=== PATIENT | male | born 1975 | race Caucasian/White ===

== ENCOUNTER 2019-04-28 19:07 | Emergency (ER) | payer BC ==
--- OUTSIDE RECORDS SUMMARY | 2019-04-28 19:45 | XMS REPORT | Continuity of Care Document ---
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 Onset: 11/26/2015 Anxiety state Shanda Shaw M.D. Onset: 11/26/2015 Psychogenic impotence Omar Pedro MD Onset: 02/06/2018 Sterilization education Carlos Harper M.D. Onset: 03/20/2018 Social History Type Date Description Comments Sex Unknown ETOH Use Drinks 2 Alcoholic "a couple times a week" Beverages Per Day Tobacco Use Start: Unknown End: Patient is a former 1 PPD x13 years Quit Unknown smoker 2008 and 2013 Tobacco Use Start: Unknown Patient is a current marijuana smoker, smokes every day Smoking Status Reviewed: 04/23/19 Patient is a current marijuana smoker, smokes every day Allergies, Adverse Reactions, Alerts Active Allergies Reaction Severity Comments Date Penicillin 12/29/2010 Medications Active Medications SIG Qnty Indications Ordering Provider Date Hydroxyzine HCL 1 tab by mouth 90tabs F41.9 Omar Pedro MD 06/12/2018 25mg every night at Tablets bedtime Lisinopril 1 by mouth every 90tabs I10 Omar Pedro MD 12/29/2015 5mg Tablets day Immunizations CPT Code Status Date Vaccine Lot # [id number] Given 12/18/2018 Influenza Virus Vaccine, Quadrivalent, 36 Mos+, [id number] .5ML 83002 Given 01/22/2018 Influenza Virus Vaccine, Quadrivalent, 36 Mos+, [id number] .5ML 17046 Given 11/30/2016 Influenza Virus Vaccine Quadrivalent Iiv4 [place] [id number] [address] Given 11/26/2015 Influenza Virus Vaccine Split Virus Use For Individual 3Yr Older [id number] Given 11/14/2014 Influenza Vaccine (Fluzone) Age 3 And Older 19442 Given 11/14/2013 flu vaccination 23829 Given 10/26/2012 flu vaccination 07655 Given 08/17/2012 Tdap injection 62021 Given 02/09/2012 flu vaccination 61784 Given 12/03/2009 flu vaccination 62306 Given 11/05/2008 flu vaccination Vital Signs Date Vital Result Comment 04/23/2019 10:10am BP Systolic 98 mmHg BP Diastolic 68 mmHg Body Temperature 98.5 F Heart Rate 75 /min Respiratory Rate 20 /min Weight 222.38 lb O2 % BldC Oximetry 100 % 02/27/2019 9:43am BP Systolic 128 mmHg BP Diastolic 80 mmHg Body Temperature 98.9 F Heart Rate 61 /min Respiratory Rate 16 /min Height 70 inches 5'10" Weight 223.00 lb BMI (Body Mass Index) 32.0 kg/m2 BSA (Body Surface Area) 2.19 m2 Holiday body weight in kilograms 75 kg O2 % BldC Oximetry 98 % Results Test Acquired Date Facility Test Result H/L Range Note Laboratory test 04/23/2019 [facility] Influenza A/B neg finding Rapid LDL Cholesterol 02/27/[address] Cholesterol 207 mg/dL High < 200 1, 2 Profile [address] [place], [place] [id number] [phone] Triglycerides 66 mg/dL <150 3 HDL Cholesterol 70 mg/dL >40 4 LDL-Cholesterol 124 mg/dL < 100 5 Basic Metabolic Panel 02/27/[address] Glucose 92 mg/dL Normal 74-106 [address] [place], [place] [id number] [phone] BUN 19 mg/dL High 7-18 Creatinine 1.2 mg/dL Normal 0.6-1.3 Glom Filtration Rate, Estimate >60 mL/min >60 If >60 mL/min >60 6 BUN/Creat 15.8 ratio Sodium 136 mmol/L Normal 136-145 Potassium 4.8 mmol/L Normal 3.5-5.1 Chloride 107 mmol/L Normal 98-107 Carbon Dioxide 26 mmol/L Normal 21-32 Anion Gap 3 mEq/L Low 8-16 Calcium 9.2 mg/dL Normal 8.5-10.1 Semen Post Vasectomy 11/22/2018 [facility] Volume 2.0 mL Not Estab. [address] [address] [phone] Post-Vas Sperm, Qual (SEE NOTE) 8 1 Z79.899 2 Reference Guidelines*: Desirable: ........... < 200 mg/dL Borderline High: ..... 200-239 mg/dL High: ................ >= 240 mg/dL * The National Cholesterol Education Program (NCEP) 3 Reference Guidelines*: Normal: ............. < 150 mg/dL Borderline High: .... 150-199 mg/dL High: ............... 200-499 mg/dL Very High: .......... > 500 mg/dL * Source: National Cholesterol Education Program (NCEP) 4 Reference Guidelines*: Low HDL: ..... < 40 mg/dL Normal: ..... 40-60 mg/dL Desirable: ... > 60 mg/dL *The National Cholesterol Education Program(NCEP) 5 Reference Guidelines*: Optimal:........... <100 mg/dL Near Optimal....... 100-129 mg/dL Borderline High.... 130-159 mg/dL High............... 160-189 mg/dL Very High.......... >=190 mg/dL * Source: National Cholesterol Education Program (NCEP) 6 Note: Persistent reduction for 3 months or more in an eGFR <60 mL/min/1.73 m2 defines CKD. Patients with eGFR values >/=60 mL/min/1.73 m2 may also have CKD if evidence of persistent proteinuria is present. The original MDRD equation for estimated GFR is not valid for patients less than 18 years of age. Additional information may be found at www.kdoqi.org. 7 Z98.52 8 No sperm were seen in three aliquots of the uncentrifuged specimen, if sperm are present they are below the limit of detection. 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, unspecified I10 Essential (primary) hypertension Office Visit 02/27/2019 9:50a [facility] Medicine Omar Pedro, W19.xxxA Unspecified Bj mejía RD, MD initial encounter R60.0 Localized edema Office Visit 12/18/2018 8:10a [facility] Medicine Omar Pedro, I10 Essential (primary) Bj DAVIS MD hypertension F41.9 Anxiety disorder, unspecified Z23 Encounter for immunization Z79.899 Other snf (current) drug therapy Assessments Date Code Description Provider 04/23/2019 J06.9 Acute upper respiratory infection, [place], 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., 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 unspecified 04/23/2019 I10 Essential (primary) hypertension [place] 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 M., 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 02/27/2019 W19.xxxA Unspecified fall, initial Omar Pedro MD encounter 02/27/2019 R60.0 Localized edema Omar Pedro MD 12/18/2018 I10 Essential (primary) hypertension Omar Pedro MD 12/18/2018 F41.9 Anxiety disorder, unspecified Omar Pedro MD 12/18/2018 Z23 Encounter for immunization Omar Pedro MD 12/18/2018 Z79.899 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
[2019-04-28 19:49] VITALS: BP 108/65
--- NOTE | 2019-04-28 20:00 | UC ---
Throat Pain/Nasal Hétcor HPI - HPI Summary HPI Summary: Pt stated that for the last 3 times that he has been swimming he has developed a very bad cough and this time a fever. - History of Current Complaint Chief Complaint: UCGeneralIllness Stated Complaint: COUGH, FEVER Pain Intensity: 2 - Allergies/Home Medications Allergies/Adverse Reactions: Allergies Allergy/AdvReac Type Severity Reaction Status Date / Time Penicillins AdvReac Hives Verified 04/28/19 19:49 Home Medications: Home Medications Azithromyxin BRANNON (NF) [Z-Brannon (Zithromax) 250 mg tabs #6] 2 tab PO .TODAY, THEN 1 DAILY #6 tab 04/28/19 [Rx] Lisinopril TAB* [Prinivil TAB 5 MG*] 5 mg PO DAILY 04/28/19 [History Confirmed 04/28/19] hydrOXYzine HCL TAB* [Atarax 10 MG TAB*] 10 mg PO QID PRN 04/28/19 [History Confirmed 04/28/19] predniSONE [Prednisone 20 MG TAB] 40 mg PO DAILY #10 tablet 04/28/19 [Rx] PMH/Surg Hx/FS Hx/Imm Hx - Social History Alcohol Use: Occasionally Substance Use Type: Marijuana Substance Use Comment - Amount & Last Used: daily Smoking Status (MU): Never Smoked Tobacco Review of Systems All Other Systems Reviewed And Are Negative: Yes Constitutional: Positive: Fever ENT: Positive: Sore Throat, Sinus Congestion Respiratory: Positive: Cough Neurological/Mental Status: Positive: Headache Is Patient Immunocompromised?: No Physical Exam Triage Information Reviewed: Yes Appearance: Well-Nourished, Ill-Appearing, Pain Distress Vital Signs: Initial Vital Signs Temp 100.2 F 04/28/19 19:46 Pulse 91 04/28/19 19:46 Resp 16 04/28/19 19:46 BP 108/65 04/28/19 19:46 Pulse Ox 96 04/28/19 19:46 Vital Signs Reviewed: Yes Eye Exam: Normal ENT: Positive: Pharyngeal erythema, Nasal congestion, Nasal drainage, Tonsillar swelling Dental Exam: Normal Neck exam: Normal Respiratory Exam: Normal Respiratory: Positive: Chest non-tender, Lungs clear, Normal breath sounds Cardiovascular Exam: Normal Cardiovascular: Positive: RRR, No Murmur, Pulses Normal Abdominal Exam: Normal Bowel Sounds: Positive: Present Musculoskeletal Exam: Normal Neurological Exam: Normal Psychological Exam: Normal Skin Exam: Normal Throat Pain/Nasal Course/Dx - Course Course Of Treatment: hx obtained, exam performed ,meds reviewed, treated for pharyngitis, recommend follow up with follow up manager if these symtpoms persist with swimming in chlorinated pools - Differential Dx/Diagnosis Differential Diagnosis/HQI/PQRI: Influenza, Pharyngitis, Sinusitis Provider Diagnosis: Pharyngitis Discharge ED - Sign-Out/Discharge Documenting (check all that apply): Patient Departure All imaging exams completed and their final reports reviewed: No Studies - Discharge Plan Condition: Stable Disposition: HOME Prescriptions: Azithromyxin BRANNON (NF) [Z-Brannon (Zithromax) 250 mg tabs #6] 2 tab PO .TODAY, THEN 1 DAILY #6 tab predniSONE [Prednisone 20 MG TAB] 40 mg PO DAILY #10 tablet Patient Education Materials: Pharyngitis (ED) Referrals: Woodrow Kan MD [Primary Care Provider] - Additional Instructions: 1. take the medication as prescribed. 2. Watch symtpoms and timing of symtpoms especially as it relates to swimming. 3. FOllow up as needed. - Billing Disposition and Condition Condition: STABLE Disposition: Home
[2019-04-28 20:16] LABS: Influenza A Molecular Negative (Negative); Influenza B Molecular Negative (Negative)
== END 2019-04-28 20:28 | disposition home or self-care (01) ==
LOC: UCCORT 19:07
DX: J02.9 Acute pharyngitis, unspecified (principal); R51 Headache; R05 Cough; R09.89 Other specified symptoms and signs involving the circulatory and respiratory systems; Z88.0 Allergy status to penicillin
CPT/HCPCS: 99202; G0463